=== PATIENT | female | born 1950 | race Caucasian/White ===

== ENCOUNTER 2024-03-30 17:17 | Emergency (ER) | payer MEDICARE ==
[~2024-03-30] VITALS: Ht 172.7 cm; Wt 98.3 kg
[2024-03-30 17:33] VITALS: TEMP 97.4
[2024-03-30] MEDS: BOOSTRIX VACCINE (TETANUS/DIPHTH/ACEL. PERTUSSIS) 0.5ML SYR IM ONE (17:50)
[2024-03-30 18:45] VITALS: BP 125/58
[2024-03-30 19:00] VITALS: O2SAT 100
[2024-03-30] MEDS: ACETAMINOPHEN 325 MG TAB PO ONE (19:05)
== END 2024-03-30 19:11 | disposition home or self-care (01) ==
LOC: EDBD 17:17 → M ED 17:17
DX: S00.83XA Contusion of other part of head, initial encounter (principal); W01.198A Fall on same level from slipping, tripping and stumbling with subsequent striking against other object, initial encounter; N18.30 Chronic kidney disease, stage 3 unspecified; M25.78 Osteophyte, vertebrae; M50.30 Other cervical disc degeneration, unspecified cervical region; Z23 Encounter for immunization; Y92.511 Restaurant or cafe as the place of occurrence of the external cause; Y93.89 Activity, other specified; Y99.9 Unspecified external cause status